=== PATIENT | female | born 1980 | race Caucasian/White ===

== ENCOUNTER 2021-09-02 16:59 | Emergency (ER) | payer OTHER, SELFPAY ==
[2021-09-02 19:09] LABS: Absolute Lymphocytes (CBC) 2.2 K/uL (0.7-4.9); Hematocrit 36.1 % (36.0-45.0); Lymphocytes % 25.4 % (15.3-44.8); MCV 91.5 fL (80-100); MPV 7.5 fL (7.6-11.3); RBC Red Blood Cell Count 3.95 M/uL (3.86-4.86)
[2021-09-02 19:26] LABS: Albumin 4.7 g/dL (3.4-5.0); Bilirubin Total 0.2 mg/dL (0.2-1.0); Potassium 3.5 mmol/L (3.5-5.1); Protein, Total 8.1 g/dL (6.4-8.2)
[2021-09-02 20:16] LABS: Urine Blood Trace-intact (Negative); Urine Glucose Negative (Negative); Urine Protein Negative (Negative)
--- NOTE | 2021-09-02 20:28 | RAD REPORT ---
EXAM DESCRIPTION: CT - Soft Tissue Neck W/Contr - 09/02/2021 8:00 pm CLINICAL HISTORY: Neck mass, nonpulsatile COMPARISON: No comparisons TECHNIQUE: During dynamic enhancement using 100 milliliters nonionic IV contrast, axial 5 millimeter thick images of the neck were obtained. BB marker placed on the skin surface at the area of concern. All CT scans are performed using dose optimization technique as appropriate and may include automated exposure control or mA/KV adjustment according to patient size. FINDINGS: Lateral right neck palpable abnormality is seen as a 17 millimeter round homogeneous fluid attenuation mass. No abnormally enhancing or thickened rind. No air within the mass. This is a commo n location for a second branchial cleft cyst. CT findings do not suggest secondary infection. The cys tic mass is laterally positioned just deep to the skin surface. No deeper tract is identifiable. Derm oid cyst or cystic lymph node would be possible. No other cyst or mass identifiable in the neck. No abnormal lymphadenopathy otherwise noted. Pharyngeal mucosa is normal. No tonsillar or tongue base abnormality seen. Epiglottis and vocal cords unremarkable. Thyroid, submandibular and parotid gland tissues are unremarkable. Intracranial findings are normal. No vascular abnormality. No bone abnormality seen. IMPRESSION: Approximately 17 mm homogeneous cystic mass lateral right neck inferior to the right ang le of the mandible. Second branchial cleft cyst is the favored etiology. No evidence for secondary infection.
[2021-09-02] MEDS ORDERED: LIDOCAINE 1% W/EPI 1:100,000 MDV 20 ML VIAL ONE (21:40)
[2021-09-02] MEDS ORDERED: BUPIVACAINE 0.25% PF 10 ML VIAL ONE (21:42)
--- NOTE | 2021-09-02 21:56 | ER ---
Nurse's Notes [facility] Name: Betty Garcia Age: 40 yrs Sex: Female : 1980 Arrival Date: 09/02/2021 Time: 17:00 Bed 19 Private MD: Diagnosis: Cutaneous abscess of neck-right submandibular Presentation: 09/02 17:46 Chief complaint: Patient states: has a cyst on right side of neck and it's getting iw bigger. Coronavirus screen: At this time, the client does not indicate any symptoms associated with coronavirus-19. Ebola Screen: Patient negative for fever greater than or equal to 101.5 degrees Fahrenheit, and additional compatible Ebola Virus Disease symptoms Patient denies exposure to infectious person. Patient denies travel to an Ebola-affected area in the 21 days before illness onset. No symptoms or risks identified at this time. Initial Sepsis Screen: Does the patient meet any 2 criteria? No. Patient's initial sepsis screen is negative. Does the patient have a suspected source of infection? No. Patient's initial sepsis screen is negative. Risk Assessment: Do you want to hurt yourself or someone else? Patient reports no desire to harm self or others. Onset of symptoms was September 02, 2021. 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 - Social history:: Smoking status: unknown. Screenin:18 Abuse screen: Denies threats or abuse. Denies injuries from another. Nutritional kd3 screening: No deficits noted. Tuberculosis screening: No symptoms or risk factors identified. Fall Risk None identified. Assessment: 20:18 General: Appears in no apparent distress. Behavior is calm, cooperative. Pain: kd3 Complains of pain in right sternocleidomastoid. Neuro: Level of Consciousness is awake, alert, obeys commands, Oriented to person, place, time, situation. Respiratory: Airway is patent Trachea midline Respiratory effort is even, unlabored, Respiratory pattern is regular, symmetrical. Vital Signs: 18:25 BP 147 / 78; Pulse 87; Resp 16; Temp 97.6; Pulse Ox 100% on R/A; Pain 8/10; iw 20:17 Weight 49.9 kg; Height 5 ft. 5 in. (165.10 cm); kd3 22:08 BP 139 / 75; Pulse 82; Resp 17; Pulse Ox 100% ; kd3 20:17 Body Mass Index 18.30 (49.90 kg, 165.10 cm) kd3 ED Course: 17:00 Patient arrived in ED. am2 17:47 Triage completed. iw 18:26 Patrick Muñoz PA is PHCP. cp 18:26 Patrick Keys MD is Attending Physician. cp 18:58 CBC with Diff Sent. oj 18:58 CMP Sent. oj 20:02 CT Soft Tissue Neck W/contr In Process Unspecified. EDMS 20:09 Thao Lo RN is Primary Nurse. kd3 20:18 No provider procedures requiring assistance completed. kd3 20:18 Patient has correct armband on for positive identification. kd3 20:41 Jose Manuel Styles DO is Attending Physician. cp 21:53 Deana Whitfield MD is Referral Physician. cp 22:08 IV discontinued, intact, bleeding controlled, No redness/swelling at site. Pressure kd3 dressing applied. 22:08 Arm band placed on. kd3 Administered Medications: 22:07 Drug: Lidocaine-Epinephrine -1%: (1:100,000) 10 ml Volume: 20 ml; Route: Infiltration; kd3 22:07 Drug: Marcaine (bupivacaine) (0.25 %) 10 ml Route: Infiltration; kd3 Medication: 20:18 VIS not applicable for this client. kd3 Outcome: 21:56 Discharge ordered by . cp 22:07 Discharged to home ambulatory. kd3 22:07 Condition: stable 22:07 Discharge instructions given to patient, Instructed on discharge instructions, follow up and referral plans. Demonstrated understanding of instructions, follow-up care, medications, Prescriptions given X 1. 22:09 Patient left the ED. kd3 Signatures: Dispatcher [employer] EDMS Patricia Westbrook RN RN Patrick Muñoz PA PA cp Yulissa Wagner am2 Thao Lo RN RN kd3 Kaley Paige oj Corrections: (The following items were deleted from the chart) 18:25 18:25 Resp 16bpm; Temp 97.6F; Pain 09/30; iw iw
--- NOTE | 2021-09-02 21:56 | EDPHYS ---
Physician Documentation [facility] Name: Betty Garcia Age: 40 yrs Sex: Female : 1980 Arrival Date: 09/02/2021 Time: 17:00 Bed 19 Private MD: ED Physician Jose Manuel Styles HPI: 09/02 19:00 This 40 yrs old Female presents to ER via Ambulatory with complaints of Neck Problem, cp Neck Pain, >24Hrs Old, Difficulty Swallowing. 19:00 The patient or guardian complains of pain, tenderness, cyst to right lateral neck. cp 19:00 Associated signs and symptoms: Pertinent positives: pain, difficulty swallowing, cp Pertinent negatives: fever, headache, vomiting. 19:00 Severity of symptoms: in the emergency department the symptoms are unchanged, despite cp home interventions. 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 - Social history:: Smoking status: unknown. ROS: 19:05 Neck: Positive for pain at rest, of the right lateral neck, cyst. cp 19:05 Eyes: Negative for injury, pain, redness, and discharge. cp 19:05 Constitutional: Negative for body aches, chills, fever, poor PO intake. 19:05 ENT: Positive for difficulty swallowing, Negative for drainage from ear(s), ear pain, sore throat, difficulty handling secretions. 19:05 Cardiovascular: Negative for chest pain, palpitations. 19:05 Respiratory: Negative for cough, shortness of breath, wheezing. 19:05 Abdomen/GI: Negative for abdominal pain, nausea, vomiting, and diarrhea. 19:05 Neuro: Negative for altered mental status, dizziness, headache, syncope, weakness. 19:05 All other systems are negative. Exam: 19:10 Constitutional: The patient appears in no acute distress, alert, awake, comfortable, cp non-toxic, well developed, well nourished. 19:10 Head/Face: Normocephalic, atraumatic. cp 19:10 Eyes: Periorbital structures: appear normal, Conjunctiva: normal, no exudate, no injection, Sclera: no appreciated abnormality, Lids and lashes: appear normal, bilaterally. 19:10 ENT: External ear(s): are unremarkable, Nose: is normal, Mouth: Lips: moist, Oral mucosa: moist, Posterior pharynx: Airway: no evidence of obstruction, patent. 19:10 Neck: External neck: mass, that is moderate-sized, that is tender to palpation, quarter size right submandibular cyst, tender to palpation, no surrounding erythema, fluctuant, ROM/movement: is normal, is supple, without pain, no range of motions limitations, no nuchal rigidity, Lymph nodes: no appreciated lymphadenopathy. 19:10 Chest/axilla: Inspection: normal. 19:10 Cardiovascular: Rate: normal, Rhythm: regular. 19:10 Respiratory: the patient does not display signs of respiratory distress, Respirations: normal, no use of accessory muscles, no retractions, labored breathing, is not present, Breath sounds: are clear throughout, no decreased breath sounds, no stridor, no wheezing. 19:10 Abdomen/GI: Exam negative for discomfort, distension, guarding, Inspection: abdomen appears normal. 19:10 Neuro: Orientation: to person, place \T\ time. Mentation: is normal. Vital Signs: 18:25 BP 147 / 78; Pulse 87; Resp 16; Temp 97.6; Pulse Ox 100% on R/A; Pain 8/10; iw 20:17 Weight 49.9 kg; Height 5 ft. 5 in. (165.10 cm); kd3 22:08 BP 139 / 75; Pulse 82; Resp 17; Pulse Ox 100% ; kd3 20:17 Body Mass Index 18.30 (49.90 kg, 165.10 cm) kd3 Procedures: 22:00 I \T\ D: Incision and drainage was performed for an abscess of the right submandibular cp area Prepped with Betadine, Anesthetized with 3 ml's 1% Lidocaine w/ Epi. Incised with 18 gauge needle. Drained moderate amount purulent fluid. the patient tolerated the procedure well. MDM: 20:05 Patient medically screened. cp 21:55 Data reviewed: vital signs, nurses notes, lab test result(s), radiologic studies, CT cp scan. 21:55 Counseling: I had a detailed discussion with the patient and/or guardian regarding: the cp historical points, exam findings, and any diagnostic results supporting the discharge/admit diagnosis, lab results, radiology results, the need for outpatient follow up, for definitive care, an ENT specialist, to return to the emergency department if symptoms worsen or persist or if there are any questions or concerns that arise at home. 09/02 18:28 Order name: CBC with Diff; Complete Time: 20:27 cp 09/02 20:28 Interpretation: Normal except: HGB 11.9; MPV 7.5; RDW 15.4. cp 09/02 18:28 Order name: CMP; Complete Time: 20:27 cp 09/02 20:28 Interpretation: Normal except: CL 109; GFR 86. cp 09/02 18:28 Order name: CT Soft Tissue Neck W/contr; Complete Time: 20:40 cp 09/02 20:17 Order name: Urine Dipstick-Ancillary; Complete Time: 20:27 EDMS 09/02 20:17 Order name: Urine --Ancillary (enter results); Complete Time: 21:53 mw2 09/02 18:28 Order name: IV Saline Lock; Complete Time: 18:58 cp 09/02 18:28 Order name: Labs collected and sent; Complete Time: 18:58 cp 09/02 18:28 Order name: Urine Dipstick-Ancillary (obtain specimen); Complete Time: 20:17 cp 09/02 18:28 Order name: Urine Test (obtain specimen); Complete Time: 20:17 cp 09/02 20:52 Order name: I\T\D Setup; Complete Time: 21:36 cp Administered Medications: 22:07 Drug: Lidocaine-Epinephrine -1%: (1:100,000) 10 ml Volume: 20 ml; Route: Infiltration; kd3 22:07 Drug: Marcaine (bupivacaine) (0.25 %) 10 ml Route: Infiltration; kd3 Disposition Summary: 09/02/21 21:56 Discharge Ordered Location: Home cp Problem: new cp Symptoms: have improved cp Condition: Stable cp Diagnosis - Cutaneous abscess of neck - right submandibular cp Followup: cp - With: Deana Whitfield MD - When: 2 - 3 days - Reason: Wound Recheck Discharge Instructions: - Discharge Summary Sheet cp - Skin Abscess cp - Incision and Drainage cp Forms: - Medication Reconciliation Form cp - Thank You Letter cp - Antibiotic Education cp - Prescription Opioid Use cp Prescriptions: - Clindamycin HCl 150 mg Oral Capsule - take 1 capsule by ORAL route every 6 hours for 10 days; 40 capsule; Refills: 0, cp Product Selection Permitted Signatures: Dispatcher [employer] Patricia Lomeli RN RN Patrick Cardenas PA PA cp Thao Lo RN RN kd3 Corrections: (The following items were deleted from the chart) 20:28 20:27 Normal except: HGB 11.9. cp cp 09/03 20:39 09/02 22:30 I \T\ D: Incision and drainage was performed for an abscess of the right cp submandibular area Prepped with Betadine, Anesthetized with 3 ml's 1% Lidocaine w/ Epi. Incised with 18 gauge needle. Drained moderate amount purulent fluid. the patient tolerated the procedure well, cp
[2021-09-02 22:45] VITALS: TEMP 97.6; O2SAT 100
[2021-09-02 22:47] VITALS: BP 139/75
== END 2021-09-02 22:09 | disposition home or self-care (01) ==
LOC: ER 16:59
DX: L02.11 Cutaneous abscess of neck (principal)
CPT/HCPCS: 36415; 70491; 80053; 81003; 81025; 85025; Q9967